=== PATIENT | male | born 1960 | race Caucasian/White ===

== ENCOUNTER 2020-04-15 15:39 | Inpatient (IN) | payer OTHER ==
[~2020-04-15] VITALS: Ht 185.4 cm; Wt 121.1 kg
[2020-04-15 15:50] VITALS: BP 137/83
[2020-04-15] MEDS ORDERED: AMLODIPINE BESY10 MG PO (16:02)
[2020-04-15] MEDS ORDERED: POTASSIUM CHLO20 ME3 PO (16:04)
[2020-04-15] MEDS ORDERED: DULOXETINE HCL60 MG PO (16:05)
[2020-04-15] MEDS ORDERED: OMEPRAZOLE20 M2 PO (16:05)
--- NOTE | 2020-04-15 16:06 | NUR ---
PATIENT IN EXAM ROOM, SISTER AT BEDSIDE. PT STATES THAT HE IS IN ALOT OF LOWER BACK/KIDNEY PAIN, RATES PAIN 10/10, STATES "IF I DONT GET SOMETHING FOR THIS PAIN, IM LEAVING, I CANT STAY HERE". DONOVAN LEWIS MADE AWARE.
[2020-04-15 16:30] LABS: BASO % 0.4 % (0.0-1.0); EOS # 0.1 10*3/uL (0.0-0.4); EOS % 1.5 % (1.0-4.0); HEMATOCRIT 36.8 % (42.0-52.0); LYMPH # 1.4 10*3/uL (1.3-4.4); LYMPH % 19.9 % (27.0-41.0); MEAN CELL VOLUME 94.4 fl (80.0-94.0); MEAN CORPUSCULAR HGB 30.3 pg (27.0-31.0); MEAN CORPUSCULAR HGB CONC 32.1 g/dl (33.0-37.0); MEAN PLATELET VOLUME 8.6 fl (9.6-12.3); MONO # 0.7 10*3/uL (0.1-1.0); MONO % 10.9 % (3.0-9.0); NEUT # 4.5 10*3/uL (2.3-7.9); PLATELET COUNT AUTOMATED 162 10*3/uL (130-400); RED CELL DISTRI WIDTH 14.5 % (0-14.5); WHITE BLOOD COUNT 6.8 10*3/uL (4.8-10.8)
[2020-04-15 16:45] LABS: ALBUMIN 3.1 gm/dl (3.1-4.5); ALKALINE PHOSPHATASE 71 U/L (45-117); BUN 9 mg/dl (7-24); CHLORIDE 99 mmol/L (98-107); CREATININE 0.95 mg/dL (0.70-1.30); POTASSIUM 4.5 mmol/L (3.5-5.1); SGOT/AST 96 IU/L (3-35); SGPT/ALT 77 U/L (12-78); SODIUM 134 mmol/L (136-145); TOTAL PROTEIN 8.2 gm/dL (6.4-8.2)
[2020-04-15 16:56] LABS: ACETAMINOPHEN (TYLENOL) < 5.0 ug/ml (10-30)
[2020-04-15 17:09] LABS: BILIRUBIN NEGATIVE; CLARITY CLEAR (CLEAR); COLOR YELLOW (YELLOW); GLUCOSE NEGATIVE; KETONE NEGATIVE
[2020-04-15 17:10] LABS: BACTERIA TRACE; BLOOD TRACE-LYSED (NEGATIVE); LEUKO ESTERASE NEGATIVE (NEGATIVE); NITRITE NEGATIVE (NEGATIVE); UROBILINOGEN 0.2 E.U./dl (0.0-1.0); WBC 0-2 wbc/hpf (0-5)
[2020-04-15 17:19] LABS: URINE AMPHETAMINES < 1000 (1000ng/ml); URINE BARBITURATES < 200 (200ng/ml); URINE BENZODIAZEPINES < 200 (200ng/ml); URINE CANNABINOIDS (THC) > 50 (50ng/ml); URINE COCAINE < 300 (300ng/ml); URINE METHADONE < 300 (300ng/ml); URINE OPIATES < 300 (300ng/ml); URINE PHENCYCLIDINE < 25 (25ng/ml)
--- NOTE | 2020-04-15 18:39 | NUR ---
MANJIT BOLANOS [id number] PT SISTER
--- NOTE | 2020-04-15 18:44 | NUR ---
PATIENT GETTING VERY AGGITATED IN ROOM. STATES "IF SOMEONE DONT START TREATING THIS ALCOHOLISM AND PAIN, IM LEAVING", JAMES GRAVEL TRUCK DRIVER NOTIFED.
--- NOTE | 2020-04-15 18:47 | NUR ---
PATIENT HAS MULTIPLE FISSURES ON TIPS OF TOES, NO OPEN AREAS NOTED, PT ALSO HAS NECROTIC AREAS NOTED TO BILATERAL FEET, REFUSES PHOTOGRAPHS. CONTINUES INCREASED AGITATION.
[2020-04-15 18:59] VITALS: BP 142/72
--- NOTE | 2020-04-15 19:24 | NUR ---
PT WALKED OUTSIDE OF ROOM AND RIPPED IV ACCESSS OUT. PT AGGITATED AND YELLING. PT REDIRECTED TO ROOM AND WAS GIVEN ATIVAN. PT WAS CLEANED UP AND BANDAID APPLIED TO BLEEDING AREA. PT AGREED TO HAVE ANOTHER IV PLACED.
[2020-04-15 19:54] VITALS: BP 148/81
--- NOTE | 2020-04-15 19:54 | NUR ---
A 59, admitted to [facility]U, under the services of CALLY Jaime DO with a diagnosis of ETOH WITHDRAWL ETOH INTOXICATION. Chief complaint is WANTS TO DETOX. Patient arrived via stretcher from ER. Monitor applied. Initial assessment completed. Vital signs taken and recorded. CALLY JAIME DO notified of admission to the unit. Orders received. See assessment for past medical history, medications and allergies. Patient and/or family oriented to unit. [facility] visitation policy reviewed. Clothing/patient valuable form completed. LOIDA JOHNSTON
--- NOTE | 2020-04-15 20:07 | NUR ---
PT WAS TRANSFERRED TO CT PRIOR TO GOING TO ICU. SECURITY CAME WELL
[2020-04-15] MEDS ORDERED: AVAPRO150 M1 PO (20:17)
[2020-04-15] MEDS ORDERED: MAG-OXIDE200 MG PO (20:19)
--- NOTE | 2020-04-15 20:55 | NUR ---
GARETT CALLED WITH CONSULT ORDERS RECIEVED AND PLACED AT THIS TIME.
--- NOTE | 2020-04-15 21:29 | NUR ---
DELROY CONSULT CALLED OT BIBIANA JONES RN.
[2020-04-16] VITALS: BP 127/86
[2020-04-16 04:00] VITALS: BP 123/62
[2020-04-16 05:24] LABS: ALBUMIN 2.8 gm/dl (3.1-4.5); ALKALINE PHOSPHATASE 66 U/L (45-117); BUN 8 mg/dl (7-24); CHLORIDE 105 mmol/L (98-107); CREATININE 0.84 mg/dL (0.70-1.30); LIPASE 202 U/L (73-393); POTASSIUM 3.8 mmol/L (3.5-5.1); SGOT/AST 76 IU/L (3-35); SGPT/ALT 67 U/L (12-78); SODIUM 141 mmol/L (136-145); TOTAL PROTEIN 7.7 gm/dL (6.4-8.2)
[2020-04-16 06:14] LABS: BASO % 0.5 % (0.0-1.0); EOS # 0.1 10*3/uL (0.0-0.4); EOS % 1.4 % (1.0-4.0); HEMATOCRIT 36.9 % (42.0-52.0); LYMPH # 0.9 10*3/uL (1.3-4.4); LYMPH % 16.5 % (27.0-41.0); MEAN CELL VOLUME 95.8 fl (80.0-94.0); MEAN CORPUSCULAR HGB 30.4 pg (27.0-31.0); MEAN CORPUSCULAR HGB CONC 31.7 g/dl (33.0-37.0); MEAN PLATELET VOLUME 8.9 fl (9.6-12.3); MONO # 0.7 10*3/uL (0.1-1.0); NEUT # 3.9 10*3/uL (2.3-7.9); NEUT % 69.4 % (47.0-73.0); PLATELET COUNT AUTOMATED 146 10*3/uL (130-400); RED BLOOD COUNT 3.85 10*6/uL (4.50-5.90); RED CELL DISTRI WIDTH 14.6 % (0-14.5); WHITE BLOOD COUNT 5.7 10*3/uL (4.8-10.8)
[2020-04-16 08:00] VITALS: BP 154/85
--- NOTE | 2020-04-16 08:56 | NUR ---
MEDICATED PT PER PRN ORDER WITH IV ATIVAN FOR PT'S MODERATE TREMORING AND C/O "WITHDRAWING" NOT RELIEF WITH EARLIER PO ATIVAN.
--- NOTE | 2020-04-16 09:30 | NUR ---
PT RESTING SLIGHTLY BETTER WITH EARLIER IV ATIVAN.
--- NOTE | 2020-04-16 09:50 | NUR ---
DR BOCANEGRA IN TO SEE PT.
--- NOTE | 2020-04-16 10:10 | NUR ---
DR BAJWA IN TO SEE PT.
--- NOTE | 2020-04-16 10:48 | NUR ---
PT REQUESTING MEDICINE FOR "WITHDRAWL" PT C/O AGITATION,ANXIETY, WORSENING TREMORS AND MUSCLE ACHES. MEDICATED PT PER PRN ORDER WITH VISTARIL FOR PT'S ANXIETY, ROBAXIN FOR C/O MUWCLE ACHES AND ROUTINE ATIVAN.
--- NOTE | 2020-04-16 11:30 | NUR ---
PT RESTING. EARLIER PRN MEDS EFFECTIVE.
[2020-04-16 12:00] VITALS: BP 153/82
--- NOTE | 2020-04-16 12:40 | NUR ---
DR POTTS IN TO SEE PT. SPOKE WITH HIM REGARDING HIS ANXIETY AND POSSIBLE.
[2020-04-16 16:00] VITALS: BP 149/89
--- NOTE | 2020-04-16 18:24 | NUR ---
MEDICATED PT PER PRN ORDER WITH IV ATIVAN FOR HIS REQUEST FOR "WITHDRAWL". PT IS AGITATED AND HAS VISABLE TREMORS.
[2020-04-16 20:00] VITALS: BP 160/92
[2020-04-17] VITALS: BP 158/86
[2020-04-17 04:00] VITALS: BP 128/77
[2020-04-17 05:46] LABS: ALBUMIN 2.7 gm/dl (3.1-4.5); ALKALINE PHOSPHATASE 67 U/L (45-117); BUN 11 mg/dl (7-24); CHLORIDE 101 mmol/L (98-107); CREATININE 0.89 mg/dL (0.70-1.30); POTASSIUM 3.6 mmol/L (3.5-5.1); SGOT/AST 51 IU/L (3-35); SGPT/ALT 53 U/L (12-78); SODIUM 137 mmol/L (136-145); TOTAL PROTEIN 7.8 gm/dL (6.4-8.2)
[2020-04-17 05:55] LABS: BASO % 0.5 % (0.0-1.0); EOS # 0.1 10*3/uL (0.0-0.4); EOS % 1.9 % (1.0-4.0); HEMATOCRIT 39.2 % (42.0-52.0); LYMPH # 0.9 10*3/uL (1.3-4.4); LYMPH % 16.2 % (27.0-41.0); MEAN CELL VOLUME 95.4 fl (80.0-94.0); MEAN CORPUSCULAR HGB 30.2 pg (27.0-31.0); MEAN CORPUSCULAR HGB CONC 31.6 g/dl (33.0-37.0); MEAN PLATELET VOLUME 9.3 fl (9.6-12.3); MONO # 0.6 10*3/uL (0.1-1.0); MONO % 10.1 % (3.0-9.0); NEUT # 4.1 10*3/uL (2.3-7.9); PLATELET COUNT AUTOMATED 144 10*3/uL (130-400); RED BLOOD COUNT 4.11 10*6/uL (4.50-5.90); RED CELL DISTRI WIDTH 14.3 % (0-14.5); WHITE BLOOD COUNT 5.8 10*3/uL (4.8-10.8)
--- NOTE | 2020-04-17 07:02 | NUR ---
Shift chart check completed.
[2020-04-17 08:00] VITALS: BP 156/84
--- NOTE | 2020-04-17 08:20 | NUR ---
PATIENT DENIES ALL C/O EXCEPT FOR TREMORS WHICH ARE VISIBLE AT REST. CO-OPERATIVE WITH CARE..VSS.. LOU LEVIN FROM SURGERY ROUNDED DID INTERNAL RESIDENT DR MEDINA. VOIDING STRAW URINE - ABLE TO HIT THE URINAL THIS TIME
--- NOTE | 2020-04-17 08:39 | NUR ---
PRN ROBAXIN & VISTARIL ALONG WITH PO ZOFRAN (PT REQUEST IT SEEMS TO MAKE OTHERS WORK BETTER" AND ROUTINE PO ATIVAN GIVEN FOR MODERATE VISIBLE TREMORS AT REST THAT INCREASE WITH ACTIVITY.. COWA SCORE 12 --- CIWA SCORE 15.
--- NOTE | 2020-04-17 09:14 | NUR ---
MEDICATIONS EFFECTIVE - PATIENT SLEEPING/SNORING.. CIWA & COWA SCORE ZERO..
--- NOTE | 2020-04-17 11:10 | NUR ---
LAVERN ANTHONY, SHIFT DIRECTOR, NOTIFIED PT HAS BEEN MADE TELEMETRY PT.
[2020-04-17 12:00] VITALS: BP 137/80
--- NOTE | 2020-04-17 12:12 | NUR ---
IV ATIVAN GIVEN AT REQUEST OF PATIENT TO HELP HIM SLEEP AND TO STOP TREMORS HE HAS WHEN AWAKE. VSS. IV SITE HAS GOOD BLOOD RETURN
--- NOTE | 2020-04-17 13:03 | NUR ---
PATIENT MEETS [facility]. PATIENT REPORTS THAT HE WANTS RESIDENTIAL TREATMENT FOR HIS AFTERCARE PLAN. DC STAFF WILL SEND OUT REFERRAL TO AREA FACILITIES. DC STAFF WILL FOLLOW BACK UP WITH PATIENT. CHANO FREDERICK B.A. PLASTIC PARTS FABRICATOR
--- NOTE | 2020-04-17 14:08 | NUR ---
LUCIANO STAFF IN TO SEE PATIENT. SPOKE TO PATIENT ABOUT RESIDENTIAL TREATMENT FOR HIS AFTERCARE PLAN. PATIENT DECIDED THAT HE WANTS TO FOLLOW BACK UP WITH HIS AA MEETINGS AND TO FIND A NEW SPONSOR. CHANO FREDERICK B.A. LIQUID WASTE TREATMENT PLANT OPERATOR
[2020-04-17 16:00] VITALS: BP 133/82
--- NOTE | 2020-04-17 19:00 | NUR ---
REPORT RECEIVED. PT WATCHING TV. NO S/S OF DISTRESS.
--- NOTE | 2020-04-17 19:59 | NUR ---
24 HR chart check completed.
[2020-04-17 20:00] VITALS: BP 125/82
--- NOTE | 2020-04-17 20:04 | NUR ---
IV ATIVAN GIVEN PRN FOR VISABLE DT'S. ALSO COMPLAINTS OF ANXIETY. WILL MONITOR
--- NOTE | 2020-04-17 21:01 | NUR ---
IV ATIVAN APPEARS EFFECTIVE. PT LYING IN BED. NO VISABLE TREMOR
--- NOTE | 2020-04-17 22:50 | NUR ---
PT GIVEN TRAZODONE PER ORDER FOR COMPLAINTS OF INSOMNIA. WILL MONITOR
--- NOTE | 2020-04-17 23:40 | NUR ---
TRAZADONE APPEARS EFFECTIVE, PT ASLEEP AT THIS TIME.
[2020-04-18] VITALS: BP 129/79
--- NOTE | 2020-04-18 00:12 | NUR ---
ATIVAN GIVEN PER ORDER FOR COMPLAINTS OF ANXIETY WELL VISABLE TREMORS. WILL MONITOR
--- NOTE | 2020-04-18 01:10 | NUR ---
ATIVAN EFFECTIVE. PT ASLEEP, NO VISABLE TREMORS AT THIS TIME.
--- NOTE | 2020-04-18 04:35 | NUR ---
ATIVAN GIVEN PER ORDER FOR PT COMPLAINTS OF ANXIETY. VISABLE TREMORS ALSO NOTED AT THIS TIME. WILL MONITOR
--- NOTE | 2020-04-18 05:27 | NUR ---
PER PT, ATIVAN HELPED. VISABLE TREMOR NO LONGER NOTICED.
--- NOTE | 2020-04-18 07:00 | NUR ---
ARIVED ON SHIFT, REPORT RECEIVED FROM OFFGOING NURSE, ASSUMED CARE OF PATIENT.
--- NOTE | 2020-04-18 07:30 | NUR ---
INTRODUCED SELF TO PATIENT, BED IN LOW POSITION WITH WHEEL LOCKS ENGAGED, BED ALARM ON, CALL LIGHT WITHIN REACH, SIDE RAILS UP X 2 FOR TURNING AND REPOSITIONING, NO NEEDS VOICED AT THIS TIME. WHITE BOARD UPDATED.
[2020-04-18 08:00] VITALS: BP 120/76
--- NOTE | 2020-04-18 08:22 | NUR ---
Shift chart check completed.
--- NOTE | 2020-04-18 09:00 | NUR ---
Senior Internet Sales Consultant in to talk to patient. Patient states lives at home alone with his sister who lives in [place] helping him. He states she is his go to person. There are 26 steps in the home. There is 13 steps upstairs to his bedroom and 13 steps to the basement for laundry. Physician: Clemente Steve [facility]: [facility] Home health services: none Patient's level of ADLs: INDEPENDENT Patient has working utilities: yes DME: none Follow-up physician's appointment after d/c: will be made by the hospitalist nurse director upon discharge Does patient want to access PORTAL?: no Discharge plan discussed with patient. He lives at home alone with assistance from his sister. His sister lives in [place] and he lives in [place]. He states he is independent in his ADLs and ambulation. He does have some back pain at times and takes medical marijuana. Discussed home health care services and he declines. CM will continue to follow for any discharge planning needs. He states he wants to follow with AA meetings and that outpatient mental health care services have been scheduled through his physician in [place]. He doesn't want to follow with any services in [facility] because he lives in [place]. He sleeps on the couch at home because he states with his back he has a hard time lying flat in bed. He did buy a new bed but hasn't had a chance to sleep in it. When medically stable he will be discharged to home. He states either his sister or a friend will provide transportation on discharge. LOU YAÑEZ
--- NOTE | 2020-04-18 09:46 | NUR ---
PATIENT C/O WITH TREMORS, MEDICATED WITH LORAZEPAM ORDERED, ADVISED DR. BOCANEGRA OF PATIENTS ELEVATED HR IN THE 130'S OR > WITH ACTIVITY
--- NOTE | 2020-04-18 10:52 | NUR ---
CALL PLACED TO HOSPITALIST LINE SPOKE TO DR. GONZALEZ ADVISED OF PATIENTS SUCIEDE SCREEN WAS POSITIVE, ADVISED THAT PAULINE FROM [facility] SAW PATIENT TODAY AND PATIENT W STARTED ON ABILIFY, HE REQUESTED I CALL DR. OROPEZA AND LET HER KNOW.
--- NOTE | 2020-04-18 10:56 | NUR ---
PATIENT REPORTS GOOD RELIEF FROM LORAZEPAM GIVEN X 1 HOUR AGO.
--- NOTE | 2020-04-18 10:59 | NUR ---
CALL PLACED TO DR. VINCENT OFFICE, ADVISED SHE IS OFF, DIRECTED TO CALL PAULINE LEWIS, CALL PLACED TO [facility], ADVISED THAT SHE IS ON PHONE, SHE VERSED SHE WILL HAVE HER CLL ME WHEN OFF PHONE.
[2020-04-18 12:00] VITALS: BP 120/68
--- NOTE | 2020-04-18 12:05 | NUR ---
RECEIVED CALL BACK FROM PAULINE Rutherford, ADVISED OF PATIENTS THOUGHTS OF SUICIDE AND SELF HARM, SHE VERSED THAT SHE IS AWARE AND IS PLANNING TO GET PATIENT TO [facility]IT WHEN MEDICALLY STABLE.
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
[2020-04-18 16:00] VITALS: BP 145/82
--- NOTE | 2020-04-18 16:22 | NUR ---
PATIENT C/O FEELING ANXIOUS, MEDICATED WITH VISTRAL ORDERED PRN.
--- NOTE | 2020-04-18 19:00 | NUR ---
REPORT RECEIVED. PT LYING IN BED WATCHING TV. NO COMPLAINTS
[2020-04-18 20:00] VITALS: BP 148/92
--- NOTE | 2020-04-18 22:01 | NUR ---
VISTARIL GIVEN FOR COMPLAINTS OF ANXIETY. TRAZADONE GIVEN FOR COMPLAINTS OF INSOMNIA. WILL MONITOR
--- NOTE | 2020-04-18 23:00 | NUR ---
PRN MEDICATIONS EFFECTIVE, PT ASLEEP
[2020-04-19] VITALS: BP 159/87
--- NOTE | 2020-04-19 01:00 | NUR ---
PT SLEEPING AT THIS TIME. NO S/S OF DISTRESS. RESPIRATIONS EASY AND UNLABORED. CALL LIGHT IN REACH
--- NOTE | 2020-04-19 02:00 | NUR ---
IN TO CHECK ON PT. PT LYING IN BED SLEEPING AT THIS TIME. NO S/S OF DISTRESS NOTED.
--- NOTE | 2020-04-19 04:13 | NUR ---
PT CALLED FOR NURSE AT THIS TIME. PT STATES "IM JUST WAY TO ANXIOUS AND HAVENT SLEPT ALL NIGHT LONG. I NEED SOMETHING FOR MY ANXIETY" PRN VISTARIL GIVEN PER ORDER. WILL MONITOR
--- NOTE | 2020-04-19 05:10 | NUR ---
VISTARIL APPEARS EFFECTIVE, PT ASLEEP AT THIS TIME. NO SIGNS OF TREMORS/DISTRESS. CALL LIGHT IN REACH
[2020-04-19 08:00] VITALS: BP 137/95
[2020-04-19] MEDS ORDERED: ABILIFY5 MG PO (10:19)
[2020-04-19] MEDS ORDERED: FLAGYL500 MG PO (10:19)
[2020-04-19] MEDS ORDERED: CIPRO500 MG PO (10:19)
--- NOTE | 2020-04-19 10:49 | NUR ---
PT REFUSED WOUND DISCHARGE PHOTOS
[2020-04-19 12:00] VITALS: BP 104/43
--- NOTE | 2020-04-19 12:00 | NUR ---
PT SISTER BRAULIO CALLED UNIT RE: DISCHARGE AND STATES [employer] WILL MANAGER TRADING THE PATIENT AND EXPRESSED CONCERN RE: HE WILL "JUST DRINK SOON HE GETS HOME" AND IS REQUESTING FOR HIM TO STAY HERE UNTIL PLACEMENT IN A TREATMENT CENTER COULD BE ARRANGED. DR CLOUD NOTIFIED.
--- NOTE | 2020-04-19 13:00 | NUR ---
DR CLOUD CALLED UNIT AND STATES HE ARE WORKING ON AN INSURANCE RIDE FOR THE PT.
--- NOTE | 2020-04-19 14:50 | NUR ---
INSURANCE CALLED AND STATES RIDE WILL BE HERE IN 15 MINS TO GET PATIENT.
--- NOTE | 2020-04-19 15:00 | NUR ---
PT STATES UNDERSTANDING AND IS OK WITH DISCHARGE TO HOME AND HE STATES HE WILL NOT DRINK AND GO TO TREATMENT ON TUESDAY WITH SOMEONE HE HAD STARTED THE PROCESS BEFORE ADMISSION TO THE HOSPITAL.
--- NOTE | 2020-04-19 15:10 | NUR ---
PT SISTER BRAULIO NOTIFIED OF DISCHARGE SHE WASN'T HAPPY WITH SITUATION. SHE STATES SHE WILL CALL HIM AND TRY AND SET UP SOEMTHING FOR PT. THIS NURSE STATES UNDERSTANDING.
--- NOTE | 2020-04-19 15:13 | NUR ---
Discharge instructions reviewed with patient/family. Patient receptive and verbalizes understanding. Follow-up care arranged. Written instructions given to patient/family. YUKO STORM
== END 2020-04-19 15:13 | disposition home or self-care (01) | DRG 775 ==
LOC: ED 15:39 → EDBD 15:44 → 5E 18:14 → ICCU 18:14 → EDHOLD 18:14 → ICCU 19:09 → 5E 04-17 14:28
PROVIDERS: Family Medicine; Hospitalist; Nurse Practitioner Family; ADMIT Internal Medicine; ATTEND Internal Medicine
PROC: 0HBRXZZ Excision of Toe Nail, External Approach (ICD-10-PCS; principal; 2020-04-16)
PROC: 0HBRXZZ Excision of Toe Nail, External Approach (ICD-10-PCS; 2020-04-16)
PROC: 0HBRXZZ Excision of Toe Nail, External Approach (ICD-10-PCS; 2020-04-16)
PROC: 0HBRXZZ Excision of Toe Nail, External Approach (ICD-10-PCS; 2020-04-16)
PROC: 0HBRXZZ Excision of Toe Nail, External Approach (ICD-10-PCS; 2020-04-16)
PROC: 0HBRXZZ Excision of Toe Nail, External Approach (ICD-10-PCS; 2020-04-16)
PROC: 0HBRXZZ Excision of Toe Nail, External Approach (ICD-10-PCS; 2020-04-16)
PROC: 0HBRXZZ Excision of Toe Nail, External Approach (ICD-10-PCS; 2020-04-16)
PROC: 0HBRXZZ Excision of Toe Nail, External Approach (ICD-10-PCS; 2020-04-16)
PROC: 0HBRXZZ Excision of Toe Nail, External Approach (ICD-10-PCS; 2020-04-16)
DX: F10.239 Alcohol dependence with withdrawal, unspecified (principal); K21.9 Gastro-esophageal reflux disease without esophagitis; R89.7 Abnormal histological findings in specimens from other organs, systems and tissues; E43 Unspecified severe protein-calorie malnutrition; F10.229 Alcohol dependence with intoxication, unspecified; R73.9 Hyperglycemia, unspecified; F12.10 Cannabis abuse, uncomplicated; Z20.828 Contact with and (suspected) exposure to other viral communicable diseases; B35.1 Tinea unguium; E87.1 Hypo-osmolality and hyponatremia; D53.9 Nutritional anemia, unspecified; G62.9 Polyneuropathy, unspecified; K57.92 Diverticulitis of intestine, part unspecified, without perforation or abscess without bleeding; F32.9 Major depressive disorder, single episode, unspecified; F41.9 Anxiety disorder, unspecified; Z68.35 Body mass index [BMI] 35.0-35.9, adult; Z86.19 Personal history of other infectious and parasitic diseases; Z83.3 Family history of diabetes mellitus; Z82.3 Family history of stroke